=== PATIENT | female | born 1940 | race Caucasian/White ===

== ENCOUNTER → 2016-11-05 | Day surgery (SDC) | payer MEDICARE, MEDICAID ==
[~2016-11-05] MED LIST: ASCO500T35 PO; ATOR20TA65 PO; CEPH500C PO; CLOT30CR TP; INS7030 SUBQ; LOSA1TAB70 PO; METF500T4 PO; SENN8.6C6 PO; WARF2.5T82 PO; WARF3TAB7 PO
--- NOTE | 2016-11-05 13:46 | DRSVH ---
PROCEDURE: CT ANGIOGRAPHY OF THE AORTA WITH RUN-OFF WITH AND WITHOUT CONTRAST ([id number]) INDICATIONS: PAD TECHNIQUE: After the administration of intravenous contrast, 2 and 5 mm sections acquired from T12 to the feet, with optional delayed image acquisition from the knees to the feet. 3-dimensional maximum intensity projection (MIP) coronal and sagittal reformats, and/or 3-dimensional volume rendering reformatting w as then performed. For radiation dose reduction, the following was used: automated exposure control . COMPARISON: None. FINDINGS: Image quality: Excellent. Extravascular tissues: Lung bases are clear. Heart size is normal. Liver is normal in size and enh ancement. The spleen is not visualized and is likely surgically absent. Gallbladder is unremarkable. Biliary system is non dilated. Pancreas enhances normally. No adrenal nodules. The right kidney is normal size. The left kidney is mildly atrophic and no hydronephrosis. Non opacified bowel loops dem onstrate normal wall thickness and enhancement. A large amount of stool is present in the rectosigmoi d region. There are scattered sigmoid diverticula. No evidence for diverticulitis. No free fluid or a ir. No retroperitoneal or mesenteric adenopathy. No ventral hernias. Bladder wall thickness is nor mal. No inguinal hernias or adenopathy. No suspicious bony lesions. No vertebral body compression fractures. Severe degenerative changes are present throughout the visualized portions of the thoraco lumbar spine. Abdominal aorta: A focal high-grade stenosis is present at the origin of the celiac axis and SMA. A m oderate grade stenosis is present at the origin of the right renal artery and a high-grade stenosis i s present at the origin of the left renal artery. Dense atheromatous calcification is present through out the abdominal aorta. No aneurysmal dilatation. The SHANIQUA is patent. Right lower extremity: Diffuse mural irregularity is present throughout the common, internal, and ext ernal iliac arteries mild stenosis throughout. The right common femoral artery is patent. The profund a is patent. The right SFA is occluded within the mid third. There is reconstitution of the distal ri ght SFA via collaterals. The distal SFA is moderately stenosed throughout. The popliteal artery is pa tent. The anterior tibial artery is occluded near the origin. The perineal and posterior tibial arter ies are patent to the level of the foot. Left lower extremity: A focal moderate to high-grade stenosis is present at the origin of the left co mmon iliac artery. Mild mural irregularity is present throughout the more distal portions of the left common iliac. Dense atheromatous calcifications are present throughout the patent left internal chelsie c artery. A focal high-grade stenosis is present within the midportion of the left external iliac art ahsan. A moderate grade stenosis is present within the distal left common femoral artery. The left SFA is occluded at the origin. A stent is present throughout the proximal and mid third of the left super ficial femoral artery (all of which is occluded. The profunda is patent. There is reconstitution of t he distal left SFA via collaterals. Diffuse mural irregularity and mild to moderate stenosis is prese nt throughout. The posterior tibial artery is patent to the level of the foot. The peroneal artery is diminutive and catheter. The anterior tibial artery is occluded at the origin. IMPRESSION: 1. Focal high-grade stenosis within the left external iliac artery. This lesion is amenable to percut aneous transluminal angioplasty. This may help with improved blood flow to the left lower extremity a nd good healing of the nonhealing ulcer. 2. Occlusion of the bilateral superficial femoral arteries with reconstitution of the distal SFA via collaterals. 3. Two-vessel right and single vessel left lower extremity runoff. Dictated by: Rakel Nunez M.D. on 11/05/2016 at 13:19 Approved by: Rakel Nunez M.D. on 11/05/2016 at 13:44
--- NOTE | 2016-11-05 16:19 | DRSVH ---
PROCEDURE: PHYSICIAN CONSULTATION COMPARISON: None. ID & CHIEF COMPLAINT: Ms. Ravi is a pleasant 76-year-old female who presents to discuss a nonheal ing ulcer on the dorsum of her left foot. HISTORY OF PRESENT ILLNESS: The patient is a 76-year-old female with multiple medical problems who re cently fell and sprained her knee. After falling she had marked difficulty with walking and was trans ferred to a rehabilitation facility. At this facility was noted that she has a nonhealing wound on th e dorsum of the left foot. She presents to discuss peripheral vascular disease and options for revasc ularization of the left foot. 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 ALLERGIES: Multiple including ciprofloxacin, minocycline, neomycin, tetracycline, vancomycin, beta bl ockers MEDICATIONS: Medication list on file (in PACS documents) and reviewed. FOCUSED PHYSICAL EXAM: Nonhealing ulcer demonstrated on the dorsum of the left foot which appears to originated between the great and second toe. This measures approximately 2 cm in diameter. Skin changes associated with pedro rial insufficiency are noted in the bilateral lower extremities. IMAGING: CTA of the bilateral lower extremities demonstrates occlusion of the bilateral superficial f emoral arteries, 2 vessel right, and single-vessel left lower extremi runoff. There is a focal high-g rade stenosis within the left external iliac artery. IMPRESSION: In summary, Ms. Ravi is a pleasant 76-year-old female with a nonhealing ulcer of the dorsum of the left foot. She has a focal high-grade stenosis within the left external iliac artery wh ich is likely amenable to percutaneous angioplasty. Today we discussed the process of angiogram and a ngioplasty including the risks and benefits of the procedure. We discussed that opening this lesion m ay help revascularize the lower extremity and help heal her left foot wound. Her questions in her son s questions were answered during the visit. She wishes to proceed as soon as possible. The findings were also discussed with Dr. Vale Joshua on 11/05/16. Thank you for this interesting consult. Dictated by: Rakel Nunez M.D. on 11/05/2016 at 16:08 Approved by: Rakel Nunez M.D. on 11/05/2016 at 16:17
== END | disposition home or self-care (01) ==
LOC: SOUO 00:15
PROVIDERS: ATTEND Radiology Vascular & Interventional Radiology
DX: I70.8 Atherosclerosis of other arteries (principal); I70.245 Atherosclerosis of native arteries of left leg with ulceration of other part of foot; I70.201 Unspecified atherosclerosis of native arteries of extremities, right leg; E11.51 Type 2 diabetes mellitus with diabetic peripheral angiopathy without gangrene; L97.529 Non-pressure chronic ulcer of other part of left foot with unspecified severity; I10 Essential (primary) hypertension; D68.61 Antiphospholipid syndrome; Z86.73 Personal history of transient ischemic attack (TIA), and cerebral infarction without residual deficits; Z86.718 Personal history of other venous thrombosis and embolism; Z79.01 Long term (current) use of anticoagulants; I77.1 Stricture of artery
CPT/HCPCS: 75635; G0463; Q9967